=== PATIENT | female | born 1955 | race Caucasian/White ===

== ENCOUNTER 2020-05-14 04:21 | Day surgery (SDC) | payer OTHER ==
[2020-05-10 11:46] VITALS: BMI 31.7
[2020-05-14] MEDS ORDERED: DEXAMETHASONE SOD PHOSPHATE 4 MG/1 ML VIAL ONE (07:19)
[2020-05-14] MEDS ORDERED: LIDOCAINE HCL/PF 2% SDV 5ML VIAL ONE (07:19)
[2020-05-14] MEDS ORDERED: PROPOFOL 20 ML ONE (07:19)
[2020-05-14] MEDS ORDERED: SUCCINYLCHOLINE CHLORIDE 200 MG/10 ML SYRINGE ONE (07:19)
[2020-05-14] MEDS ORDERED: fentaNYL CITRATE 250 MCG/5 ML VIAL ONE (07:19)
[2020-05-14] MEDS ORDERED: ROCURONIUM BROMIDE 50 MG/5 ML SYRINGE ONE (07:20)
[2020-05-14] MEDS ORDERED: MIDAZOLAM HCL 2 MG/2 ML SINGLE DOSE VIAL ONE (07:20)
[2020-05-14] MEDS ORDERED: THROMBIN (BOVINE) 5,000 UNIT VIAL TP ONE (07:29)
[2020-05-14] MEDS ORDERED: LIDOCAINE 1%/EPI 1:100000 (50 ML MULTI DOSE VIAL) ONE (07:29)
[2020-05-14 09:32] VITALS: BP 144/68; PULSE 68; TEMP 97.6
== END 2020-05-14 09:40 | disposition home or self-care (01) ==
LOC: JASU-SURG 04:21
PROVIDERS: ATTEND Surgery
DX: Z53.8 Procedure and treatment not carried out for other reasons (principal)

== ENCOUNTER 2024-01-27 10:58 | Emergency (ER) | payer OTHER ==
[2024-01-27 11:24] VITALS: BP 110/89; PULSE 88; RESP 16; TEMP 98.4; BMI 30.4
[2024-01-27 12:11] LABS: AMORP URATES FEW /hpf (NONE SEEN); EPITHELIAL CELLS 0-5 /hpf
[2024-01-27] MEDS ORDERED: ACETAMINOPHEN INJECTION 100 ML ONE (12:27)
[2024-01-27] MEDS: ACETAMINOPHEN 1000 MG/100 ML BAG IVPB ONE (12:58)
[2024-01-27] MEDS: SODIUM CHLORIDE 0.9% 500 ML INFUS.BAG IV ONE (12:58)
[2024-01-27 13:02] LABS: HEMATOCRIT 41.1 % (32.4-45.2); HEMOGLOBIN 13.5 G/dL (10.7-15.3); MCH 29.5 pg (25.7-33.7); MCHC 32.8 g/dl (32.0-36.0); MEAN CELL VOLUME 89.8 fl (80-96); MEAN PLT VOLUME 8.8 fl (7.5-11.1); PLATELET COUNT 217.5 10^3/uL (134-434); RBC 4.58 10^6/uL (3.60-5.2); RDW 15.1 % (11.6-15.6); WHITE BLOOD COUNT 11.5 10^3/uL (4.0-10.8)
[2024-01-27 13:05] LABS: PLATELET ESTIMATE ADEQUATE
[2024-01-27 13:21] LABS: ALBUMIN 4.4 g/dl (3.4-5.0); ALK PHOS 68 U/L (45-117); ANION GAP 8 mmol/L (4-13); BILIRUBIN,TOTAL 1.5 mg/dl (0.2-1); CALCIUM 9.5 mg/dl (8.5-10.1); CHLORIDE 101 mmol/L (98-107); CO2 27 mmol/L (21-32); CREATININE 0.8 mg/dl (0.6-1.3); GLUCOSE,RANDOM 103 mg/dl (74-106); POTASSIUM 3.9 mmol/L (3.5-5.1); SGOT/AST 15 U/L (15-37); SGPT/ALT 11 U/L (7-52); SODIUM 136 mmol/L (136-145); TOT PROT 7.2 g/dl (6.4-8.2)
== END 2024-01-27 16:05 | disposition home or self-care (01) ==
LOC: FER 10:58
PROC: 3E033NZ Introduction of Analgesics, Hypnotics, Sedatives into Peripheral Vein, Percutaneous Approach (ICD-10-PCS; principal; 2024-01-27)
DX: R10.32 Left lower quadrant pain (principal); K57.92 Diverticulitis of intestine, part unspecified, without perforation or abscess without bleeding
CPT/HCPCS: 36415; 71045-TC-FY; 74177-TC; 80053; 81003; 81015; 85027; 87086; 99285-25; J0131; Q9967